=== PATIENT | male | born 1945 | race Caucasian/White ===

== ENCOUNTER → 2016-12-21 | Outpatient (CLI) | payer MEDICARE ==
[~2016-12-21] MED LIST: ATOR40TA PO; CITA20TA9 PO; ESOM40CA PO; FAMO20TA32 PO; METO-275 PO; NIFE-2 PO; PROC5TAB59 PO; [UNRECOGNIZED DRUG - CODE] SQ
--- NOTE | 2016-12-21 10:30 | DI ---
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 Coronal and sagittal two-dimensional reformats. Automated Exposure Control and Iterative Reconstruction dose reducing techniques were utilized. Findings: Chest: The lungs are clear. No pneumonia, pleural effusion or pneumothorax. No new pulmonary masses or nodules. The central airways are patent. Left IJ central venous port catheter. No axillary or mediastinal adenopathy. Heart size is normal. No pericardial effusion. Three vessel coronary artery atherosclerotic plaque. Abdomen/pelvis: Continued density in the cardia region of the fundus near the GE junction measuring 2.6 cm in diameter. This region has shown metabolic activity on prior PET exams. The known liver metastases are quite difficult to visualize without intravenous contrast. There is continued vague low-attenuation in the central left lobe of the liver consistent with metastatic involvement. These lesions cannot be precisely measured but appear grossly similar to the PET/CT. No obvious new lesions identified. The spleen appears normal. The pancreas and adrenal glands are normal. Kidneys are stable with multiple bilateral cysts and changes of prior partial nephrectomy on the left. Two left-sided hyperdense cysts. Multiple parapelvic cysts also in the left kidney. No adenopathy seen in the gastrohepatic region or hilaria hepatis. No mesenteric or retroperitoneal adenopathy. The gallbladder is unremarkable. No pelvic adenopathy. Bladder is normal. Prostate and rectum are unchanged. No free fluid. No evidence of a bowel obstruction. Sigmoid diverticulosis without diverticulitis. Bone windows are unchanged. No lytic or blastic osseous lesions seen. Old superior endplate compression deformity of L3. Impression: Overall stable exam with approximately four hepatic metastases and a mass in the cardia of the stomach. No new or obvious worsening metastatic disease seen. .
== END ==
LOC: IMA 08:23
PROVIDERS: ATTEND Internal Medicine Hematology & Oncology
DX: C16.0 Malignant neoplasm of cardia (principal); C78.7 Secondary malignant neoplasm of liver and intrahepatic bile duct